=== PATIENT | male | born 1980 | race African-American/Black ===

== ENCOUNTER 2016-10-25 19:04 | Emergency (ER) | payer SELFPAY ==
[2016-10-25 19:12] VITALS: BP 120/68
[2016-10-25] MEDS ORDERED: CEPHALEXIN 500 MG CAPSULE PO ONE (19:56)
[2016-10-25] MEDS ORDERED: DOXYCYCLINE HYCLATE 100 MG TABLET PO ONE (19:56)
--- NOTE | 2016-10-25 20:01 | ER Document Report ---
HPI - HPI Patient complains to provider of: tick bite < 1 mth ago Onset: Other - tick bite approx 4 weeks ago with site still raised and itchy, no redness, swelling or drainage Pain Level: 0 Associated Symptoms: None Exacerbated by: Denies Relieved by: Denies - CARDIOVASCULAR Cardiovascular: DENIES: Chest pain - REPRODUCTIVE Reproductive: DENIES: : - DERM Skin Color: Normal Past Medical History - Social History Smoking Status: Current Every Day Smoker Family History: Hyperlipidemia, Hypertension Patient has suicidal ideation: No Patient has homicidal ideation: No Renal/ Medical History: Denies: Hx Peritoneal Dialysis GI Medical History: Reports: Hx Gastroesophageal Reflux Disease Musculoskeltal Medical History: Reports Hx Musculoskeletal Trauma - Immunizations Immunizations up to date: Yes Hx Diphtheria, Pertussis, Tetanus Vaccination: Yes Vertical Provider Document - CONSTITUTIONAL Agree With Documented VS: Yes Exam Limitations: No Limitations General Appearance: WD/WN, No Apparent Distress - INFECTION CONTROL TRAVEL OUTSIDE OF THE [place] IN LAST 30 DAYS: No - HEENT HEENT: Atraumatic, Normal ENT Exam, Normocephalic, PERRLA - RESPIRATORY Respiratory: Breath Sounds Normal, No Respiratory Distress, Chest Non-Tender O2 Sat by Pulse Oximetry: 97 - CARDIOVASCULAR Cardiovascular: Regular Rate, Regular Rhythm, No Murmur Pulses: Normal: Radial, Dorsalis pedis - MUSCULOSKELETAL/EXTREMETIES Musculoskeletal/Extremeties: MAEW, FROM, Non-Tender, No Edema. negative: Eccymosis - NEURO Level of Consciousness: Awake, Alert, Appropriate Motor/Sensory: No Motor Deficit, No Sensory Deficit - DERM Integumentary: Warm, Dry, No Rash Adult Front & Back Diagram: 1 - area of raised inflammation and induration without tenderness, fluctunace, erythema, drainage Course - Re-evaluation Re-evalutation: 10/25/16 20:35 Patient is a 35-year-old male who is hemodynamic stable, no acute distress and afebrile. Clinical suspicion for exposure to Lyme disease given the located in endemic area as well as that he localized to pick bite on him unsure of how long it is attached to him. Will treat for Lyme disease as well as possible cellulitis. Patient to follow-up with primary care. Given strict return precautions. Patient is agreeable with plan. - Vital Signs Vital signs: Temp Pulse Resp BP Pulse Ox 98.6 F 87 20 120/68 97 10/25/16 19:11 10/25/16 19:11 10/25/16 19:11 10/25/16 19:11 10/25/16 19:11 Discharge - Discharge Clinical Impression: Tick bite Qualifiers: Encounter type: initial encounter Qualified Code(s): W57.XXXA - Bitten or stung by nonvenomous insect and other nonvenomous arthropods, initial encounter Condition: Good Disposition: HOME, SELF-CARE Instructions: Tick Bites ([facility]) Additional Instructions: Please take all of your medications as prescribed. You can take Benadryl and use hydrocortisone cream as needed for the itching. Prescriptions: Cephalexin Monohydrate [Keflex 500 mg Capsule] 500 mg PO QID #20 capsule Doxycycline Monohydrate 100 mg PO BID 14 Days
== END 2016-10-25 20:06 | disposition home or self-care (01) ==
LOC: ER 19:04
DX: S70.361A Insect bite (nonvenomous), right thigh, initial encounter (principal); F17.200 Nicotine dependence, unspecified, uncomplicated; W57.XXXA Bitten or stung by nonvenomous insect and other nonvenomous arthropods, initial encounter
CPT/HCPCS: 99281